=== PATIENT | male | born 1975 | race African-American/Black ===

== ENCOUNTER 2025-01-15 14:47 | Emergency (ER) | payer OTHER, SELFPAY ==
[2025-01-15 15:00] VITALS: BP 166/99; PULSE 100; RESP 16; TEMP 36.9; O2SAT 97; BMI 29.1
--- NOTE | 2025-01-15 15:07 | DI.RAD.S_ITS ---
PROCEDURE: XR CHEST 2V INDICATIONS: cough TECHNIQUE: 2 views of the chest were acquired. COMPARISON: None. FINDINGS: Surgical changes and devices: None. Lungs and pleura: Lungs are clear. No pleural effusions or pneumothorax. Mediastinum: Mediastinal contours are normal. Heart size is normal. Bones and chest wall: No suspicious bony abnormalities. Soft tissues appear unremarkable. IMPRESSION: No acute cardiopulmonary abnormality is seen. Dictated by: John Negron M.D. on 01/15/2025 at 14:47 Approved by: John Negron M.D. on 01/15/2025 at 14:47
[2025-01-15 15:53] LABS: Influenza A - CEPHEID Flu A NEGATIVE (NEGATIVE); Influenza B - CEPHEID Flu B NEGATIVE (NEGATIVE)
[2025-01-15 16:04] LABS: COVID-19 CEPHEID 4-PLEX PCR Negative (Negative)
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
== END 2025-01-15 16:30 | disposition home or self-care (01) ==
PROVIDERS: Emergency Provider Physician Assistant
DX: J06.9 Acute upper respiratory infection, unspecified (principal); J01.90 Acute sinusitis, unspecified
CPT/HCPCS: 71046; 87637; 99281; 99283